=== PATIENT | male | born 1985 | race Caucasian/White ===

== ENCOUNTER 2016-12-11 21:29 | Emergency (ER) | payer SELFPAY ==
[2016-12-11 21:48] VITALS: BP 144/75
== END 2016-12-11 23:25 | disposition home or self-care (01) ==
LOC: ED 21:29
DX: M79.602 Pain in left arm (principal); V49.9XXA Car occupant (driver) (passenger) injured in unspecified traffic accident, initial encounter; Y93.89 Activity, other specified; Y99.8 Other external cause status; Y92.89 Other specified places as the place of occurrence of the external cause